=== PATIENT | male | born 1975 | race Hispanic/Latino ===

== ENCOUNTER → 2019-07-25 | Outpatient (CLI) | payer OTHER ==
--- NOTE | 2019-07-25 14:09 | REP ---
REASON FOR EXAM: Dyspnea. COMPARISON: None. There is a subtle fullness to the aortic pulmonary window with a mild convex superior margin. This is, however, of low density. The heart is not enlarged and pleural angles are sharp. The lung rosa are otherwise clear. The osseous structures are within normal limits. IMPRESSION: Possible fullness of the aortic pulmonary window. Since there are no priors for comparison contrast enhanced CT examination of the chest is recommended. Electronically Signed by Dejan Banegas DO 07/25/2019 04:31 P
== END ==
LOC: M RAD 09:02
PROVIDERS: ATTEND Surgery
DX: R06.02 Shortness of breath (principal)